=== PATIENT | male | born 1960 | race African-American/Black ===

== ENCOUNTER 2017-08-28 01:24 | Inpatient (IN) | payer OTHER ==
--- NOTE | 2017-08-28 01:25 | HP ---
COWS - Scale Resting Pulse: 0= [place] 80 or Below Sweatin= Chills/Flushing Restless Observation: 1= Difficult to Sit Still Pupil Size: 1= Pupils >than Normal Bone or Joint Aches: 2= Severe Diffuse Aches Runny Nose/ Eye Tearin= Runny Nose/Eyes GI Upset > 30mins: 1= Stomach Cramp Tremor Observation: 1= Tremor [place], Not Seen Yawning Observation: 1= 1-2x During Session Anxiety or Irritability: 1=Feels Anxious/Irritable Goose Flesh Skin: 3=Piloerection COWS Score: 14 Admission ROS S - [facility] Chief Complaint: WITHDRAWAL SYMPTOMS Allergies/Adverse Reactions: Allergies Allergy/AdvReac Type Severity Reaction Status Date / Time No Known Allergies Allergy Verified 08/28/17 01:26 History of Present Illness: 56 Y.O. MAN WITH A HISTORY OPIOID DEPENDENCE IS HERE SEEKING DETOX. HE REPORTS HE HAS A 14 HISTORY OF DRUG ABSTINENCE BUT STATES HE RELAPSED 2 YEARS AGO. Exam Limitations: Physical Impairment (LEFT-SIDED HEMIPARESIS) - Ebola screening Have you traveled outside of the country in the last 21 days: No Have you been sick,other than usual withdrawal symptoms: No - Review of Systems Constitutional: Chills, Loss of Appetite, Changes in sleep, Weakness EENT: reports: Tearing Respiratory: reports: No Symptoms reported Cardiac: reports: No Symptoms Reported GI: reports: Abdominal cramping : reports: No Symptoms Reported Musculoskeletal: reports: Back Pain, Muscle Weakness, Neck Pain Integumentary: reports: No Symptoms Reported Neuro: reports: Weakness, Unsteady Gait Endocrine: reports: No Symptoms Reported Hematology: reports: No Symptoms Reported Psychiatric: reports: No Sypmtoms Reported Other Systems: Reviewed and Negative Patient History - Patient Medical History Hx Anemia: No Hx Asthma: No Hx Chronic Obstructive Pulmonary Disease (COPD): No Hx Cancer: No Hx Cardiac Disorders: No Hx Congestive Heart Failure: No Hx Hypertension: No Hx Hypercholesterolemia: No Hx Pacemaker: No HX Cerebrovascular Accident: No Hx Seizures: No Hx Dementia: No Hx Diabetes: No Hx Gastrointestinal Disorders: No Hx Liver Disease: No Hx Genitourinary Disorders: No Hx Sexually Transmitted Disorders: No Hx Renal Disease (ESRD): No Hx Thyroid Disease: No Hx Human Immunodeficiency Virus (HIV): No Hx Hepatitis C: No Hx Depression: No Hx Suicide Attempt: No Hx Bipolar Disorder: No Hx Schizophrenia: No - Patient Surgical History Past Surgical History: No - PPD History Previous Implant?: Yes Documented Results: Negative w/o proof PPD to be Administered?: Yes - Reproductive History Patient is a Female of Child Bearing Age (11 -55 yrs old): No - Smoking Cessation Smoking history: Current every day smoker Have you smoked in the past 12 months: Yes Aproximately how many cigarettes per day: 7 Initiated information on smoking cessation: Yes 'Breaking Loose' booklet given: 08/28/17 - Substance & Tx. History Hx Alcohol Use: No Hx Substance Use: Yes Substance Use Type: Heroin Hx Substance Use Treatment: Yes (DETOX: 2 YEARS AGO BUT DOES NOT RECALL THE LOCATION ) - Substances Abused Heroin Route: Inhalation Frequency: Daily Amount used: 5 BAGS Age of first use: 17 Date of Last Use: 08/27/17 Family Disease History - Family Disease History Family Disease History: Diabetes: Mother Admission Physical Exam [facility] - Physical General Appearance: Yes: Thin HEENTM: Yes: Hearing grossly Normal, Normal ENT Inspection, Normal Voice Respiratory: Yes: Chest Non-Tender, Lungs Clear, Normal Breath Sounds Neck: Yes: No masses,lesions,Nodules, Trachea in good position Breast: Yes: Breast Exam Deferred Cardiology: Yes: Regular Rhythm, Regular Rate Abdominal: Yes: Normal Bowel Sounds, Non Tender, Flat, Soft Genitourinary: Yes: Other (NO COMPLAINTS REPORTED) Back: Yes: Decreased Range of Motion Musculoskeletal: Yes: Joint Stiffness, Muscle Pain, Muscle weakness Extremities: Yes: Normal Capillary Refill, Normal Inspection, Normal Range of Motion, Non-Tender Neurological: Yes: Alert, Normal Mood/Affect, Normal Response Integumentary: Yes: Normal Color, Dry, Warm Lymphatic: Yes: Within Normal Limits - Diagnostic (1) Opioid dependence with withdrawal Current Visit: Yes Status: Chronic (2) Poliomyelitis Current Visit: Yes Status: Chronic (3) Nicotine dependence Current Visit: Yes Status: Chronic (4) Unsteady gait Current Visit: Yes Status: Chronic (5) Hemiparesis of left nondominant side Current Visit: Yes Status: Chronic (6) Underweight Current Visit: Yes Status: Acute Cleared for Admission [facility] - Detox or Rehab [facility] Level of Care: Medically Managed Detox Regimen/Protocol: Methadone Vital Signs - Vital Signs Vital Signs Refused: No Temperature: 97.0 F Temperature Source: Oral Pulse Rate: 68 Respiratory Rate: 16 Blood Pressure: 111/72 BP Location: Right Arm Blood Pressure Position: Sitting - Height Height: 6 ft 3 in - Weight Weight: 145 lb Weight Measurement Method: Stated by Patient Body Mass Index (BMI): 18.1 Urine Drug Screen - Control Is Test Valid: Yes - Results Drug Screen Negative: No Urine Drug Screen Results: OPI-Opiates, MTD-Methadone
[2017-08-28] MEDS ORDERED: hydrOXYzine PAMOATE 50 MG CAPSULE (FP) PO PRN (01:26)
[2017-08-28] MEDS ORDERED: IBUPROFEN 400 MG TABLET (FP) PO PRN (01:26)
[2017-08-28] MEDS ORDERED: MENTHOL/PHENOL 1 EACH UD MM PRN (01:26)
[2017-08-28] MEDS ORDERED: MAGNESIUM CITRATE 300 ML BOTTLE PO PRN (01:26)
[2017-08-28] MEDS ORDERED: METHADONE HCL 10 MG TABLET (FOR DETOX USE ONLY) PO ONE ×3 (01:26→23:00)
[2017-08-28] MEDS ORDERED: LOPERAMIDE HCL 2 MG CAPSULE PO PRN (01:26)
[2017-08-28] MEDS ORDERED: ACETAMINOPHEN 325 MG TABLET (FP) PO PRN (01:26)
[2017-08-28] MEDS ORDERED: MAGNESIUM HYDROX 2400MG/30ML ORAL SUSPENSION 30 ML CUP PO PRN (01:26)
[2017-08-28] MEDS ORDERED: guaiFENesin/D-METHORPHAN HB 10 ML UNIT-DOSE CUPS PO PRN (01:26)
[2017-08-28] MEDS ORDERED: MAG HYDROX/AL HYDROX/SIMETH 30 ML UNIT-DOSE CUP PO PRN (01:26)
[2017-08-28] MEDS ORDERED: P-EPHED 60MG/TRIPROLIDI 2.5MG TABLET PO PRN (01:26)
[2017-08-28 01:37] VITALS: BMI 18.1
[2017-08-28] MEDS: diazePAM 5 MG TABLET PO PRN (02:47)
--- NOTE | 2017-08-28 09:38 | EKG ---
Test Reason : Blood Pressure : / mmHG Vent. Rate : 062 BPM Atrial Rate : 062 BPM P-R Int : 136 ms QRS Dur : 104 ms QT Int : 422 ms P-R-T Axes : 079 020 038 degrees QTc Int : 428 ms NORMAL SINUS RHYTHM MINIMAL VOLTAGE CRITERIA FOR LVH, MAY BE NORMAL VARIANT BORDERLINE ECG NO PREVIOUS ECGS AVAILABLE Confirmed by ARCHANA NUNN, MAU ([id number]) on 08/28/2017 9:38:21 AM Referred By: Confirmed By:MAU MAGAÑA MD
[2017-08-28 10:20] LABS: HEMATOCRIT 37.1 % (35.4-49); HEMOGLOBIN 12.1 GM/dL (11.7-16.9); MCH 29.1 pg (25.7-33.7); MCHC 32.7 g/dl (32.0-35.9); MEAN PLT VOLUME 8.2 fl (7.5-11.1); PLATELET COUNT 187 K/MM3 (134-434); RBC 4.17 M/mm3 (4.00-5.60); RDW 13.6 % (11.9-15.9); WHITE BLOOD COUNT 3.5 K/mm3 (4.0-10.0)
[2017-08-28 10:25] LABS: ALBUMIN 3.4 g/dl (3.4-5.0); ANION GAP 8 (8-16); BLOOD UREA NITROGEN 14 mg/dL (7-18); CALCIUM 8.2 mg/dL (8.5-10.1); CHLORIDE 102 mmol/L (98-107); CO2 29 mmol/L (21-32); CREATININE 0.6 mg/dL (0.7-1.3); GLUCOSE,RANDOM 85 mg/dL (74-106); SGOT/AST 14 U/L (15-37); SGPT/ALT 22 U/L (12-78); SODIUM 139 mmol/L (136-145)
[2017-08-28 10:27] LABS: ALK PHOS 76 U/L (45-117); BILIRUBIN,TOTAL 0.4 mg/dL (0.2-1.0); TOT PROT 6.6 g/dl (6.4-8.2)
[2017-08-28] MEDS: PRENATAL VITAMINS W/ FOLIC ACID TABLET (FP) PO SCH (10:28)
--- NOTE | 2017-08-28 15:17 | PN ---
[facility] Progress Note Note: PT WAS ADMITTED EARLIER THIS MORNING. ALERT O X 3. C/O FATIGUE. Vital Signs Temperature 96.2 F L 08/28/17 13:16 Pulse Rate 63 08/28/17 13:16 Respiratory Rate 18 08/28/17 13:16 Blood Pressure 112/66 08/28/17 13:16 O2 Sat by Pulse Oximetry (%) Laboratory Last Values WBC 3.5 K/mm3 (4.0-10.0) L 08/28/17 07:00 RBC 4.17 M/mm3 (4.00-5.60) 08/28/17 07:00 Hgb 12.1 GM/dL (11.7-16.9) 08/28/17 07:00 Hct 37.1 % (35.4-49) 08/28/17 07:00 MCV 89.0 fl (80-96) 08/28/17 07:00 MCH 29.1 pg (25.7-33.7) 08/28/17 07:00 MCHC 32.7 g/dl (32.0-35.9) 08/28/17 07:00 RDW 13.6 % (11.9-15.9) 08/28/17 07:00 Plt Count 187 K/MM3 (134-434) 08/28/17 07:00 MPV 8.2 fl (7.5-11.1) 08/28/17 07:00 Sodium 139 mmol/L (136-145) 08/28/17 07:00 Potassium 4.0 mmol/L (3.5-5.1) 08/28/17 07:00 Chloride 102 mmol/L (98-107) 08/28/17 07:00 Carbon Dioxide 29 mmol/L (21-32) 08/28/17 07:00 Anion Gap 8 (8-16) 08/28/17 07:00 BUN 14 mg/dL (7-18) 08/28/17 07:00 Creatinine 0.6 mg/dL (0.7-1.3) L 08/28/17 07:00 Creat Clearance w eGFR > 60 (>60) 08/28/17 07:00 Random Glucose 85 mg/dL (74-106) 08/28/17 07:00 Calcium 8.2 mg/dL (8.5-10.1) L 08/28/17 07:00 Total Bilirubin 0.4 mg/dL (0.2-1.0) 08/28/17 07:00 AST 14 U/L (15-37) L 08/28/17 07:00 ALT 22 U/L (12-78) 08/28/17 07:00 Alkaline Phosphatase 76 U/L (45-117) 08/28/17 07:00 Total Protein 6.6 g/dl (6.4-8.2) 08/28/17 07:00 Albumin 3.4 g/dl (3.4-5.0) 08/28/17 07:00 RPR Titer Nonreactive (NONREACTIVE) 08/28/17 07:00 CONTINUE DETOX
[2017-08-28] MEDS: THIAMINE HCL 100 MG TABLET (FP) PO SCH (22:46)
[2017-08-29] MEDS: diazePAM 5 MG TABLET PO PRN ×4 (06:29→22:28)
[2017-08-29] MEDS ORDERED: METHADONE HCL 10 MG TABLET (FOR DETOX USE ONLY) PO ONE (10:00)
[2017-08-29] MEDS: PRENATAL VITAMINS W/ FOLIC ACID TABLET (FP) PO SCH (10:15)
--- NOTE | 2017-08-29 11:40 | PN ---
S CIWA - CIWA Score Anxiety: 3 Paroxysmal Sweats: 3 BHS COWS - Scale Resting Pulse: 0= [place] 80 or Below Sweatin=Flushed/Facial Moisture Restless Observation: 0= Sits Still Pupil Size: 0= Normal to Room Light Bone or Joint Aches: 1= Mild Discomfort Runny Nose/ Eye Tearin= Nasal Congestion GI Upset > 30mins: 0= None Tremor Observation of Outstretched Hands: 2= Slight Tremor Visible Yawning Observation: 2= >3x During Session Anxiety or Irritability: 1=Feels Anxious/Irritable Goose Flesh Skin: 3=Piloerection COWS Score: 12 BHS Progress Note (SOAP) Subjective: Interrupted sleep, shakes, body aches, sweats, chills Objective: 08/29/17 11:40 Vital Signs Temperature 96.0 F L 08/29/17 09:31 Pulse Rate 56 L 08/29/17 09:31 Respiratory Rate 18 08/29/17 09:31 Blood Pressure 103/73 08/29/17 09:31 O2 Sat by Pulse Oximetry (%) Laboratory Last Values WBC 3.5 K/mm3 (4.0-10.0) L 08/28/17 07:00 RBC 4.17 M/mm3 (4.00-5.60) 08/28/17 07:00 Hgb 12.1 GM/dL (11.7-16.9) 08/28/17 07:00 Hct 37.1 % (35.4-49) 08/28/17 07:00 MCV 89.0 fl (80-96) 08/28/17 07:00 MCH 29.1 pg (25.7-33.7) 08/28/17 07:00 MCHC 32.7 g/dl (32.0-35.9) 08/28/17 07:00 RDW 13.6 % (11.9-15.9) 08/28/17 07:00 Plt Count 187 K/MM3 (134-434) 08/28/17 07:00 MPV 8.2 fl (7.5-11.1) 08/28/17 07:00 Sodium 139 mmol/L (136-145) 08/28/17 07:00 Potassium 4.0 mmol/L (3.5-5.1) 08/28/17 07:00 Chloride 102 mmol/L (98-107) 08/28/17 07:00 Carbon Dioxide 29 mmol/L (21-32) 08/28/17 07:00 Anion Gap 8 (8-16) 08/28/17 07:00 BUN 14 mg/dL (7-18) 08/28/17 07:00 Creatinine 0.6 mg/dL (0.7-1.3) L 08/28/17 07:00 Creat Clearance w eGFR > 60 (>60) 08/28/17 07:00 Random Glucose 85 mg/dL (74-106) 08/28/17 07:00 Calcium 8.2 mg/dL (8.5-10.1) L 08/28/17 07:00 Total Bilirubin 0.4 mg/dL (0.2-1.0) 08/28/17 07:00 AST 14 U/L (15-37) L 08/28/17 07:00 ALT 22 U/L (12-78) 08/28/17 07:00 Alkaline Phosphatase 76 U/L (45-117) 08/28/17 07:00 Total Protein 6.6 g/dl (6.4-8.2) 08/28/17 07:00 Albumin 3.4 g/dl (3.4-5.0) 08/28/17 07:00 RPR Titer Nonreactive (NONREACTIVE) 08/28/17 07:00 Labs noted Assessment: 08/29/17 11:41 withdrawal symptoms Plan: Continue Detox Increase fluids for hydration Continue to monitor
[2017-08-29] MEDS: THIAMINE HCL 100 MG TABLET (FP) PO SCH (22:28)
[2017-08-29 23:33] LABS: URINE APPEARANCE CLEAR; URINE BILIRUBIN NEGATIVE (NEGATIVE); URINE BLOOD NEGATIVE (NEGATIVE); URINE GLUCOSE (UA) NEGATIVE (NEGATIVE); URINE KETONE NEGATIVE (NEGATIVE); URINE LEUK ESTERASE NEGATIVE (NEGATIVE); URINE NITRITE NEGATIVE (NEGATIVE); URINE PROTEIN NEGATIVE (NEGATIVE); URINE UROBILINOGEN NEGATIVE mg/dL (0.2-1.0)
[2017-08-29 23:57] LABS: URINE COLOR YELLOW
[2017-08-30] MEDS: diazePAM 5 MG TABLET PO PRN ×3 (05:50→20:51)
[2017-08-30] MEDS ORDERED: METHADONE HCL 5 MG TABLET (FOR DETOX USE ONLY) PO ONE (10:00)
[2017-08-30] MEDS: PRENATAL VITAMINS W/ FOLIC ACID TABLET (FP) PO SCH (10:07)
--- NOTE | 2017-08-30 12:04 | PN ---
BHS COWS - Scale Resting Pulse: 0= [place] 80 or Below Sweatin= Chills/Flushing Restless Observation: 3= Extraneous Movement Pupil Size: 0= Normal to Room Light Bone or Joint Aches: 2= Severe Diffuse Aches Runny Nose/ Eye Tearin= Runny Nose/Eyes GI Upset > 30mins: 1= Stomach Cramp Tremor Observation of Outstretched Hands: 2= Slight Tremor Visible Yawning Observation: 1= 1-2x During Session Anxiety or Irritability: 2=Irritable/Anxious Goose Flesh Skin: 0=Smooth Skin COWS Score: 14 BHS Progress Note (SOAP) Subjective: Tremor, chills, headache, interrupted sleep Objective: 08/30/17 12:03 Last Vital Signs Temp Pulse Resp BP Pulse Ox 97.2 F L 66 18 107/75 08/30/17 10:16 08/30/17 10:16 08/30/17 10:16 08/30/17 10:16 Laboratory Tests 08/28/17 08/28/17 08/28/17 07:00 07:00 07:00 WBC 3.5 L RBC 4.17 Hgb 12.1 Hct 37.1 MCV 89.0 MCH 29.1 MCHC 32.7 RDW 13.6 Plt Count 187 MPV 8.2 Sodium 139 Potassium 4.0 Chloride 102 Carbon Dioxide 29 Anion Gap 8 BUN 14 Creatinine 0.6 L Creat Clearance w eGFR > 60 Random Glucose 85 Calcium 8.2 L Total Bilirubin 0.4 AST 14 L ALT 22 Alkaline Phosphatase 76 Total Protein 6.6 Albumin 3.4 Urine Color Urine Appearance Urine pH Ur Specific [place] Urine Protein Urine Glucose (UA) Urine Ketones Urine Blood Urine Nitrite Urine Bilirubin Urine Urobilinogen Ur Leukocyte Esterase RPR Titer Nonreactive 08/29/17 21:00 WBC RBC Hgb Hct MCV MCH MCHC RDW Plt Count MPV Sodium Potassium Chloride Carbon Dioxide Anion Gap BUN Creatinine Creat Clearance w eGFR Random Glucose Calcium Total Bilirubin AST ALT Alkaline Phosphatase Total Protein Albumin Urine Color Yellow Urine Appearance Clear Urine pH 6.0 Ur Specific [place] 1.002 Urine Protein Negative Urine Glucose (UA) Negative Urine Ketones Negative Urine Blood Negative Urine Nitrite Negative Urine Bilirubin Negative Urine Urobilinogen Negative Ur Leukocyte Esterase Negative RPR Titer Labs noted Assessment: 08/30/17 12:04 Withdrawal symptoms Plan: Continue detox Encouraged to drink lots of water for hydration
[2017-08-30] MEDS: THIAMINE HCL 100 MG TABLET (FP) PO SCH (22:30)
[2017-08-31] MEDS ORDERED: METHADONE HCL 5 MG TABLET (FOR DETOX USE ONLY) PO ONE (10:00)
[2017-08-31] MEDS: PRENATAL VITAMINS W/ FOLIC ACID TABLET (FP) PO SCH (10:09)
--- NOTE | 2017-08-31 13:00 | PN ---
BHS Progress Note (SOAP) Subjective: Generalized body aches and interrupted sleep Objective: 08/31/17 12:59 Vital Signs - 8 hr 08/31/17 08/31/17 06:44 09:23 Temperature 97.3 F L 97.9 F Pulse Rate 59 L 64 Respiratory 18 18 Rate Blood Pressure 106/73 107/71 Laboratory Last Values WBC 3.5 K/mm3 (4.0-10.0) L 08/28/17 07:00 RBC 4.17 M/mm3 (4.00-5.60) 08/28/17 07:00 Hgb 12.1 GM/dL (11.7-16.9) 08/28/17 07:00 Hct 37.1 % (35.4-49) 08/28/17 07:00 MCV 89.0 fl (80-96) 08/28/17 07:00 MCH 29.1 pg (25.7-33.7) 08/28/17 07:00 MCHC 32.7 g/dl (32.0-35.9) 08/28/17 07:00 RDW 13.6 % (11.9-15.9) 08/28/17 07:00 Plt Count 187 K/MM3 (134-434) 08/28/17 07:00 MPV 8.2 fl (7.5-11.1) 08/28/17 07:00 Sodium 139 mmol/L (136-145) 08/28/17 07:00 Potassium 4.0 mmol/L (3.5-5.1) 08/28/17 07:00 Chloride 102 mmol/L (98-107) 08/28/17 07:00 Carbon Dioxide 29 mmol/L (21-32) 08/28/17 07:00 Anion Gap 8 (8-16) 08/28/17 07:00 BUN 14 mg/dL (7-18) 08/28/17 07:00 Creatinine 0.6 mg/dL (0.7-1.3) L 08/28/17 07:00 Creat Clearance w eGFR > 60 (>60) 08/28/17 07:00 Random Glucose 85 mg/dL (74-106) 08/28/17 07:00 Calcium 8.2 mg/dL (8.5-10.1) L 08/28/17 07:00 Total Bilirubin 0.4 mg/dL (0.2-1.0) 08/28/17 07:00 AST 14 U/L (15-37) L 08/28/17 07:00 ALT 22 U/L (12-78) 08/28/17 07:00 Alkaline Phosphatase 76 U/L (45-117) 08/28/17 07:00 Total Protein 6.6 g/dl (6.4-8.2) 08/28/17 07:00 Albumin 3.4 g/dl (3.4-5.0) 08/28/17 07:00 Urine Color Yellow 08/29/17 21:00 Urine Appearance Clear 08/29/17 21:00 Urine pH 6.0 (5.0-8.0) 08/29/17 21:00 Ur Specific [place] 1.002 (1.001-1.035) 08/29/17 21:00 Urine Protein Negative (NEGATIVE) 08/29/17 21:00 Urine Glucose (UA) Negative (NEGATIVE) 08/29/17 21:00 Urine Ketones Negative (NEGATIVE) 08/29/17 21:00 Urine Blood Negative (NEGATIVE) 08/29/17 21:00 Urine Nitrite Negative (NEGATIVE) 08/29/17 21:00 Urine Bilirubin Negative (NEGATIVE) 08/29/17 21:00 Urine Urobilinogen Negative mg/dL (0.2-1.0) 08/29/17 21:00 Ur Leukocyte Esterase Negative (NEGATIVE) 08/29/17 21:00 RPR Titer Nonreactive (NONREACTIVE) 08/28/17 07:00 Labs noted Assessment: 08/31/17 13:00 Withdrawal sx Plan: Continue detox
[2017-08-31] MEDS: THIAMINE HCL 100 MG TABLET (FP) PO SCH (22:15)
[2017-09-01] MEDS ORDERED: METHADONE HCL 10 MG TABLET (FOR DETOX USE ONLY) PO ONE (10:00)
[2017-09-01] MEDS: PRENATAL VITAMINS W/ FOLIC ACID TABLET (FP) PO SCH (10:22)
--- NOTE | 2017-09-01 14:40 | PN ---
BHS Progress Note (SOAP) Subjective: Tremors, Body Aches. Objective: PT. A & O X 3, OBSERVED AMBULATING ON UNIT. NO ACUTE DISTRESS. 09/01/17 14:39 Vital Signs Temperature 95.9 F L 09/01/17 09:56 Pulse Rate 57 L 09/01/17 09:56 Respiratory Rate 18 09/01/17 09:56 Blood Pressure 111/73 09/01/17 09:56 O2 Sat by Pulse Oximetry (%) Laboratory Tests 08/28/17 08/28/17 08/28/17 07:00 07:00 07:00 WBC 3.5 L RBC 4.17 Hgb 12.1 Hct 37.1 MCV 89.0 MCH 29.1 MCHC 32.7 RDW 13.6 Plt Count 187 MPV 8.2 Sodium 139 Potassium 4.0 Chloride 102 Carbon Dioxide 29 Anion Gap 8 BUN 14 Creatinine 0.6 L Creat Clearance w eGFR > 60 Random Glucose 85 Calcium 8.2 L Total Bilirubin 0.4 AST 14 L ALT 22 Alkaline Phosphatase 76 Total Protein 6.6 Albumin 3.4 Urine Color Urine Appearance Urine pH Ur Specific [place] Urine Protein Urine Glucose (UA) Urine Ketones Urine Blood Urine Nitrite Urine Bilirubin Urine Urobilinogen Ur Leukocyte Esterase RPR Titer Nonreactive 08/29/17 21:00 WBC RBC Hgb Hct MCV MCH MCHC RDW Plt Count MPV Sodium Potassium Chloride Carbon Dioxide Anion Gap BUN Creatinine Creat Clearance w eGFR Random Glucose Calcium Total Bilirubin AST ALT Alkaline Phosphatase Total Protein Albumin Urine Color Yellow Urine Appearance Clear Urine pH 6.0 Ur Specific [place] 1.002 Urine Protein Negative Urine Glucose (UA) Negative Urine Ketones Negative Urine Blood Negative Urine Nitrite Negative Urine Bilirubin Negative Urine Urobilinogen Negative Ur Leukocyte Esterase Negative RPR Titer LABS NOTED. Assessment: 09/01/17 14:39 WITHDRAWAL SYMPTOMS. Plan: CONTINUE DETOX.
[2017-09-01] MEDS: THIAMINE HCL 100 MG TABLET (FP) PO SCH (22:13)
[2017-09-02] MEDS ORDERED: METHADONE HCL 5 MG TABLET (FOR DETOX USE ONLY) PO ONE (06:00)
[2017-09-02 06:37] VITALS: BP 108/69; PULSE 58; TEMP 96.7
[2017-09-02] MEDS: PRENATAL VITAMINS W/ FOLIC ACID TABLET (FP) PO SCH (09:25)
== END 2017-09-02 09:31 | disposition home or self-care (01) | DRG 773 ==
LOC: YASAS 01:24 → Y3N 01:26
PROVIDERS: ADMIT Internal Medicine; ATTEND Internal Medicine
PROC: HZ2ZZZZ Detoxification Services for Substance Abuse Treatment (ICD-10-PCS; principal; 2017-08-28)
DX: F11.23 Opioid dependence with withdrawal (principal); F17.210 Nicotine dependence, cigarettes, uncomplicated; G81.94 Hemiplegia, unspecified affecting left nondominant side; A80.9 Acute poliomyelitis, unspecified; R26.81 Unsteadiness on feet; R63.6 Underweight; Z68.1 Body mass index [BMI] 19.9 or less, adult
CPT/HCPCS: 36415; 80053; 81003; 85027; 86593; 93005; 93010

== ENCOUNTER 2018-01-10 13:17 | Inpatient (IN) | payer OTHER ==
[2018-01-10 16:39] VITALS: BMI 20.5
--- NOTE | 2018-01-10 20:42 | HP ---
COWS - Scale Resting Pulse: 0= [place] 80 or Below Sweatin=Flushed/Facial Moisture Restless Observation: 1= Difficult to Sit Still Pupil Size: 2= Moderately Dilated Bone or Joint Aches: 1= Mild Discomfort Runny Nose/ Eye Tearin= Nasal Congestion GI Upset > 30mins: 0= None Tremor Observation: 2= Slight Tremor Visible Yawning Observation: 0= None Anxiety or Irritability: 2=Irritable/Anxious Goose Flesh Skin: 0=Smooth Skin COWS Score: 11 Admission [facility] Chief Complaint: Hx. heroin use and here for detox.Having withdrawal symptoms. Allergies/Adverse Reactions: Allergies Allergy/AdvReac Type Severity Reaction Status Date / Time Penicillins Allergy Hives Verified 01/10/18 17:29 History of Present Illness: Started using heroin at age 14 to 16. Remained opiate free from age 16 to age 56 when relapsed. Last use 01/09 @ 11 pm. Here to stop opiate use. Denies other illicit substances or alcohol. Hx. HIV (+) and on meds. Hx. seizures and on medications. Hx. Polio and wears a leg brace and (L) wrist splint. Exam Limitations: No Limitations - Ebola screening Have you traveled outside of the country in the last 21 days: No Have you had contact with anyone from an Ebola affected area: No Have you been sick,other than usual withdrawal symptoms: No Do you have a fever: No - Review of Systems Constitutional: Changes in sleep (Difficulty falling asleep r/t depression.), Unintentional Wgt. Loss (Lost about 15 lbs in past 6 months.) EENT: reports: Blurred Vision (Wears glasses.) Respiratory: reports: No Symptoms reported Cardiac: reports: No Symptoms Reported GI: reports: Poor Appetite (decreased r/t w/drawal.) : reports: No Symptoms Reported Musculoskeletal: reports: Muscle Weakness ((L) sided muscle weakness r/t polio.) Integumentary: reports: No Symptoms Reported Neuro: reports: Numbness (Numbness (L) hand and fingers.), Seizure (Hx seizures on meds. States last seizre was 4 days ago.), Weakness (r/t Polio.), Other ( Spasms of (L) leg on occassion.) Endocrine: reports: No Symptoms Reported Hematology: reports: Other (Hx. HIV. Diagnosed in 1978. Started medications about 2 years ago.) Psychiatric: reports: Orientated x3, Depressed (Occassional. In a period of grief for loss of family members. Denies suicide or violent ideation.) Patient History - Patient Medical History Hx Anemia: No Hx Asthma: No Hx Chronic Obstructive Pulmonary Disease (COPD): No Hx Cancer: No Hx Cardiac Disorders: No Hx Congestive Heart Failure: No Hx Hypertension: No Hx Hypercholesterolemia: No Hx Pacemaker: No HX Cerebrovascular Accident: No Hx Seizures: Yes (Last two weeks ago) Hx Dementia: No Hx Diabetes: No Hx Gastrointestinal Disorders: No Hx Liver Disease: No Hx Genitourinary Disorders: No Hx Sexually Transmitted Disorders: No Hx Renal Disease (ESRD): No Hx Thyroid Disease: No Hx Human Immunodeficiency Virus (HIV): No Hx Hepatitis C: No Hx Depression: Yes (Denies suicide/violent ideation. ) Hx Suicide Attempt: No Hx Bipolar Disorder: No Hx Schizophrenia: No - Patient Surgical History Past Surgical History: No Hx Neurologic Surgery: No Hx Cataract Extraction: No Hx Cardiac Surgery: No Hx Lung Surgery: No Hx Breast Surgery: No Hx Breast Biopsy: No Hx Abdominal Surgery: No Hx Appendectomy: No Hx Cholecystectomy: No Hx Genitourinary Surgery: No Hx Section: No Hx Orthopedic Surgery: No Anesthesia Reaction: No - PPD History Previous Implant?: No Documented Results: Negative w/proof Implanted On Prior [facility] Admission?: Yes Date: 08/30/17 Results: 0MM PPD to be Administered?: No - Reproductive History Patient is a Female of Child Bearing Age (11 -55 yrs old): No - Smoking Cessation Smoking history: Current every day smoker Have you smoked in the past 12 months: Yes Aproximately how many cigarettes per day: 3 Hx Chewing Tobacco Use: No Initiated information on smoking cessation: Yes 'Breaking Loose' booklet given: 01/10/18 - Substance & Tx. History Hx Alcohol Use: No Hx Substance Use: Yes Substance Use Type: Heroin Hx Substance Use Treatment: Yes (1 prior detox attempt) - Substances Abused Heroin Route: Inhalation Frequency: Daily Amount used: 5 BAGS Age of first use: 56 Date of Last Use: 01/09/18 Family Disease History - Family Disease History Family Disease History: Diabetes: Mother Admission Physical Exam BHS - Vital Signs Vital Signs: Vital Signs - 24 hr 01/10/18 16:35 Temperature 96.4 F L Pulse Rate 53 L Respiratory 20 Rate Blood Pressure 139/75 - Physical General Appearance: Yes: Mild Distress, Tremorous, Irritable HEENTM: Yes: EOMI, Hearing grossly Normal, Normocephalic, Normal Voice, MIRANDA Respiratory: Yes: Lungs Clear, Normal Breath Sounds, No Respiratory Distress Neck: Yes: No masses,lesions,Nodules, Supple Breast: Yes: Breast Exam Deferred Cardiology: Yes: Regular Rhythm, S1, S2, Bradycardia (Denies chest pain, dizziness, SOB.) Abdominal: Yes: Normal Bowel Sounds, Non Tender, Flat, Soft Genitourinary: Yes: Within Normal Limits Back: Yes: Normal Inspection Musculoskeletal: Yes: Muscle weakness ((L) side.), Other (Decreased ROM (L) arm. ) Extremities: Yes: Normal Capillary Refill, Non-Tender, Tremors Neurological: Yes: Fully Oriented, Alert, Numbness (Numbness (L) hand and fingers.), Other (Generalized weakness (L) arm and leg. Decreased muscle tone w / wasting (L) arm and paresis fingers (L) hand. FWB (L) leg w/o a brace.) Integumentary: Yes: Dry (Dry mucous membranes), Warm Lymphatic: Yes: Within Normal Limits - Diagnostic (1) HIV (human immunodeficiency virus infection) Current Visit: Yes Status: Chronic (2) Opioid dependence with withdrawal Current Visit: Yes Status: Acute (3) Underweight Current Visit: Yes Status: Chronic (4) Hemiparesis of left nondominant side Current Visit: Yes Status: Chronic Qualifiers: Hemiparesis etiology: non-cerebrovascular etiology Qualified Code(s): G81.94 - Hemiplegia, unspecified affecting left nondominant side (5) Nicotine dependence Current Visit: Yes Status: Acute Qualifiers: Nicotine product type: cigarettes Substance use status: uncomplicated Qualified Code(s): F17.210 - Nicotine dependence, cigarettes, uncomplicated (6) Poliomyelitis Current Visit: Yes Status: Chronic (7) Unsteady gait Current Visit: Yes Status: Chronic (8) Dry skin Current Visit: Yes Status: Chronic (9) Dehydration Current Visit: Yes Status: Acute Cleared for Admission S - Detox or Rehab [facility] Level of Care: Medically Managed Detox Regimen/Protocol: Methadone [facility] Breath Alcohol Content Breath Alcohol Content: 0 Urine Drug Screen - Results Drug Screen Negative: No Urine Drug Screen Results: OPI-Opiates
[2018-01-10] MEDS ORDERED: MENTHOL/PHENOL 1 EACH UD MM PRN (21:09)
[2018-01-10] MEDS ORDERED: LOPERAMIDE HCL 2 MG CAPSULE PO PRN (21:09)
[2018-01-10] MEDS ORDERED: METHADONE HCL 10 MG TABLET (FOR DETOX USE ONLY) PO ONE ×3 (21:09→23:45)
[2018-01-10] MEDS ORDERED: hydrOXYzine PAMOATE 50 MG CAPSULE (FP) PO PRN (21:09)
[2018-01-10] MEDS ORDERED: MAGNESIUM HYDROX 2400MG/30ML ORAL SUSPENSION 30 ML CUP PO PRN (21:09)
[2018-01-10] MEDS ORDERED: MAG HYDROX/AL HYDROX/SIMETH 30 ML UNIT-DOSE CUP PO PRN (21:09)
[2018-01-10] MEDS ORDERED: NICOTINE POLACRILEX 2 MG GUM BC PRN (21:09)
[2018-01-10] MEDS ORDERED: ACETAMINOPHEN 325 MG TABLET (FP) PO PRN (21:09)
[2018-01-10] MEDS ORDERED: IBUPROFEN 400 MG TABLET (FP) PO PRN (21:09)
[2018-01-10] MEDS ORDERED: guaiFENesin/D-METHORPHAN HB 10 ML UNIT-DOSE CUPS PO PRN (21:09)
[2018-01-10] MEDS ORDERED: MAGNESIUM CITRATE 300 ML BOTTLE PO PRN (21:09)
[2018-01-10] MEDS ORDERED: P-EPHED 60MG/TRIPROLIDI 2.5MG TABLET PO PRN (21:09)
[2018-01-10] MEDS ORDERED: AMMONIUM LACTATE 12% LOTION 225 GM BOTTLE TP PRN (21:17)
[2018-01-10] MEDS: THIAMINE HCL 100 MG TABLET (FP) PO SCH (23:40)
[2018-01-10] MEDS: diazePAM 5 MG TABLET PO PRN (23:40)
[2018-01-10] MEDS: levETIRAcetam 500 MG TABLET (FP) PO SCH (23:41)
[2018-01-11 01:41] LABS: URINE APPEARANCE CLEAR; URINE BILIRUBIN NEGATIVE (<2.0 mg/dL); URINE COLOR YELLOW; URINE GLUCOSE (UA) NEGATIVE (NEGATIVE); URINE KETONE NEGATIVE (NEGATIVE); URINE LEUK ESTERASE NEGATIVE (NEGATIVE); URINE NITRITE NEGATIVE (NEGATIVE); URINE PROTEIN NEGATIVE (NEGATIVE)
--- NOTE | 2018-01-11 08:47 | EKG ---
Test Reason : Blood Pressure : / mmHG Vent. Rate : 056 BPM Atrial Rate : 056 BPM P-R Int : 152 ms QRS Dur : 102 ms QT Int : 438 ms P-R-T Axes : 067 010 033 degrees QTc Int : 422 ms SINUS BRADYCARDIA MINIMAL VOLTAGE CRITERIA FOR LVH, MAY BE NORMAL VARIANT BORDERLINE ECG WHEN COMPARED WITH ECG OF 28-AUG-2017 03:45, NO SIGNIFICANT CHANGE WAS FOUND Confirmed by ARCHANA NUNN, MAU ([id number]) on 01/11/2018 8:46:55 AM Referred By: Confirmed By:MAU MAGAÑA MD
[2018-01-11] MEDS ORDERED: METHADONE HCL 10 MG TABLET (FOR DETOX USE ONLY) PO ONE (10:00)
[2018-01-11 10:14] LABS: HEMATOCRIT 37.2 % (35.4-49); HEMOGLOBIN 12.3 GM/dL (11.7-16.9); MCH 27.8 pg (25.7-33.7); MCHC 33.2 g/dl (32.0-35.9); MEAN CELL VOLUME 83.6 fl (80-96); MEAN PLT VOLUME 7.8 fl (7.5-11.1); PLATELET COUNT 203 K/MM3 (134-434); RBC 4.45 M/mm3 (4.00-5.60); RDW 14.4 % (11.9-15.9); WHITE BLOOD COUNT 3.6 K/mm3 (4.0-10.0)
[2018-01-11] MEDS: SULFAMETHOXAZOLE/TRIMETHOPRIM 800MG/160MG D.S. TABLET PO SCH (10:20)
[2018-01-11] MEDS: levETIRAcetam 500 MG TABLET (FP) PO SCH ×2 (10:20→22:31)
[2018-01-11] MEDS: PRENATAL VITAMINS W/ FOLIC ACID TABLET (FP) PO SCH (10:20)
[2018-01-11] MEDS: diazePAM 5 MG TABLET PO PRN (10:20)
--- NOTE | 2018-01-11 10:53 | PN ---
BHS COWS - Scale Resting Pulse: 0= SC 80 or Below Sweatin= Chills/Flushing Restless Observation: 3= Extraneous Movement Pupil Size: 1= Pupils >than Normal Bone or Joint Aches: 2= Severe Diffuse Aches Runny Nose/ Eye Tearin= Runny Nose/Eyes GI Upset > 30mins: 2= Nausea/Diarrhea Tremor Observation of Outstretched Hands: 2= Slight Tremor Visible Yawning Observation: 1= 1-2x During Session Anxiety or Irritability: 2=Irritable/Anxious Goose Flesh Skin: 0=Smooth Skin COWS Score: 16 S Progress Note (SOAP) Subjective: ALERT,IRRITABLE,ANXIOUS,INTERRUPTED SLEEP,TREMOR,PAIN IN THE BODY Objective: 01/11/18 10:50 Vital Signs Temperature 98.4 F 01/11/18 09:17 Pulse Rate 60 01/11/18 09:17 Respiratory Rate 16 01/11/18 09:17 Blood Pressure 111/74 01/11/18 09:17 O2 Sat by Pulse Oximetry (%) EKG SINUS BRADYCARDIA,LVH QT 436/422 Laboratory Last Values WBC 3.6 K/mm3 (4.0-10.0) L 01/11/18 07:50 RBC 4.45 M/mm3 (4.00-5.60) 01/11/18 07:50 Hgb 12.3 GM/dL (11.7-16.9) 01/11/18 07:50 Hct 37.2 % (35.4-49) 01/11/18 07:50 MCV 83.6 fl (80-96) 01/11/18 07:50 MCH 27.8 pg (25.7-33.7) 01/11/18 07:50 MCHC 33.2 g/dl (32.0-35.9) 01/11/18 07:50 RDW 14.4 % (11.9-15.9) 01/11/18 07:50 Plt Count 203 K/MM3 (134-434) 01/11/18 07:50 MPV 7.8 fl (7.5-11.1) 01/11/18 07:50 Urine Color Yellow 01/10/18 23:49 Urine Appearance Clear 01/10/18 23:49 Urine pH 6.0 (5.0-8.0) 01/10/18 23:49 Ur Specific [place] 1.023 (1.001-1.035) 01/10/18 23:49 Urine Protein Negative (NEGATIVE) 01/10/18 23:49 Urine Glucose (UA) Negative (NEGATIVE) 01/10/18 23:49 Urine Ketones Negative (NEGATIVE) 01/10/18 23:49 Urine Blood Negative (NEGATIVE) 01/10/18 23:49 Urine Nitrite Negative (NEGATIVE) 01/10/18 23:49 Urine Bilirubin Negative (<2.0 mg/dL) 01/10/18 23:49 Urine Urobilinogen 2.0 mg/dL (0.2-1.0) 01/10/18 23:49 Ur Leukocyte Esterase Negative (NEGATIVE) 01/10/18 23:49 LABS PENDING Assessment: 01/11/18 10:53 WITHDRAWAL SYMPTOM Plan: CONTINUE DETOX
[2018-01-11 10:56] LABS: CHLORIDE 104 mmol/L (98-107); POTASSIUM 4.1 mmol/L (3.5-5.1); SODIUM 139 mmol/L (136-145)
[2018-01-11 11:13] LABS: ALBUMIN 3.6 g/dl (3.4-5.0); ALK PHOS 65 U/L (45-117); ANION GAP 6 (8-16); BILIRUBIN,TOTAL 0.5 mg/dL (0.2-1.0); BLOOD UREA NITROGEN 11 mg/dL (7-18); CALCIUM 8.4 mg/dL (8.5-10.1); CO2 29 mmol/L (21-32); CREATININE 0.7 mg/dL (0.7-1.3); GLUCOSE,RANDOM 69 mg/dL (74-106); SGOT/AST 15 U/L (15-37); SGPT/ALT 19 U/L (12-78); TOT PROT 6.9 g/dl (6.4-8.2)
[2018-01-11] MEDS: COBICISTAT PO SCH (11:52)
[2018-01-11] MEDS: TENOFOVIR ALAFENAMIDE PO SCH (11:52)
[2018-01-11] MEDS: ELVITEGRAVIR PO SCH (11:52)
[2018-01-11] MEDS: EMTRICITABINE PO SCH (11:52)
--- NOTE | 2018-01-11 15:33 | CONSULT ---
[facility] Psychiatric Consult - Data Date of interview: 01/11/18 Admission source: [facility] Identifying data: Readmission to [facility] for this 57 y/o AA male seeking detox treatment on for heroin dependence.Patient is ,a father of one,domiciled,unemployed and currently supported on SSI benefits. Substance Abuse History: Discussed with the patient.Mr Horton confirms tears of heroin abuse via snorting.Smoking history: Current every day smoker. Have you smoked in the past 12 months: Yes. Aproximately how many cigarettes per day: 3. Hx Chewing Tobacco Use: No. Initiated information on smoking cessation: Yes. 'Breaking Loose' booklet given: 01/10/18. - Substance & Tx. History. Hx Alcohol Use: No. Hx Substance Use: Yes. Substance Use Type: Heroin. Hx Substance Use Treatment: Yes (1 prior detox attempt). - Substances Abused. Heroin. Route: Inhalation. Frequency: Daily. Amount used: 5 BAGS. Age of first use: 56. Date of Last Use: 01/09/18 Medical History: HIV infection since 1978 (on HAART medications),left-sided weakness (complication of polio),seizure disorder (on levetiracetam),weight loss and history of poliomyelitis (left wrist in splint). Psychiatric History: Patient denies. Physical/Sexual Abuse/Trauma History: Patient denies history of abuse.Traumatized by 15 cumulative years of incarceration and a history of multiple deaths in the family (patient, serving time, was not able to attend several funerals).Experiences dysphoria and guilt at times.Coping well. Additional Comment: Urine Drug Screen Results: OPI-Opiates.Noted. Mental Status Exam - Mental Status Exam Alert and Oriented to: Time, Place, Person Cognitive Function: Good Patient Appearance: Well Groomed (tall staure,thin habitus,atrophy of left arm and hand) Mood: Withdrawn, Hopeful Affect: Appropriate, Normal Range Patient Behavior: Fatigued, Appropriate, Cooperative Speech Pattern: Clear, Appropriate Voice Loudness: Normal Thought Process: Intact, Goal Oriented Thought Disorder: Not Present Hallucinations: Denies Suicidal Ideation: Denies Homicidal Ideation: Denies Insight/Judgement: Fair Sleep: Fair Appetite: Fair, Weight loss Gait/Station: Normal Psychiatric Findings - Problem List ([facility] 1, 2,3) (1) Opioid dependence with withdrawal Current Visit: Yes Status: Acute (2) Nicotine dependence Current Visit: Yes Status: Acute Qualifiers: Nicotine product type: cigarettes Substance use status: uncomplicated Qualified Code(s): F17.210 - Nicotine dependence, cigarettes, uncomplicated - Initial Treatment Plan Initial Treatment Plan: Psychoeducation and support.Sleep hygiene.Detoxification in progress.Observation.
[2018-01-11] MEDS: THIAMINE HCL 100 MG TABLET (FP) PO SCH (22:31)
[2018-01-11] MEDS: MELATONIN 5 MG TABLETS PO PRN (22:31)
[2018-01-12] MEDS ORDERED: METHADONE HCL 5 MG TABLET (FOR DETOX USE ONLY) PO ONE (10:00)
[2018-01-12] MEDS: COBICISTAT PO SCH (10:15)
[2018-01-12] MEDS: ELVITEGRAVIR PO SCH (10:15)
[2018-01-12] MEDS: SULFAMETHOXAZOLE/TRIMETHOPRIM 800MG/160MG D.S. TABLET PO SCH (10:15)
[2018-01-12] MEDS: EMTRICITABINE PO SCH (10:15)
[2018-01-12] MEDS: PRENATAL VITAMINS W/ FOLIC ACID TABLET (FP) PO SCH (10:15)
[2018-01-12] MEDS: TENOFOVIR ALAFENAMIDE PO SCH (10:15)
[2018-01-12] MEDS: levETIRAcetam 500 MG TABLET (FP) PO SCH ×2 (10:15→22:21)
--- NOTE | 2018-01-12 13:24 | PN ---
BHS COWS - Scale Resting Pulse: 0= OR 80 or Below Sweatin= Chills/Flushing Restless Observation: 3= Extraneous Movement Pupil Size: 1= Pupils >than Normal Bone or Joint Aches: 2= Severe Diffuse Aches Runny Nose/ Eye Tearin= Runny Nose/Eyes GI Upset > 30mins: 2= Nausea/Diarrhea Tremor Observation of Outstretched Hands: 2= Slight Tremor Visible Yawning Observation: 1= 1-2x During Session Anxiety or Irritability: 2=Irritable/Anxious Goose Flesh Skin: 0=Smooth Skin COWS Score: 16 BHS Progress Note (SOAP) Subjective: alert,irritable,anxious,interrupted sleep,tremor,pain in the body and back Objective: 01/12/18 13:23 Vital Signs Temperature 98.4 F 01/12/18 09:13 Pulse Rate 49 L 01/12/18 09:13 Respiratory Rate 20 01/12/18 09:13 Blood Pressure 105/68 01/12/18 09:13 O2 Sat by Pulse Oximetry (%) Laboratory Last Values WBC 3.6 K/mm3 (4.0-10.0) L 01/11/18 07:50 RBC 4.45 M/mm3 (4.00-5.60) 01/11/18 07:50 Hgb 12.3 GM/dL (11.7-16.9) 01/11/18 07:50 Hct 37.2 % (35.4-49) 01/11/18 07:50 MCV 83.6 fl (80-96) 01/11/18 07:50 MCH 27.8 pg (25.7-33.7) 01/11/18 07:50 MCHC 33.2 g/dl (32.0-35.9) 01/11/18 07:50 RDW 14.4 % (11.9-15.9) 01/11/18 07:50 Plt Count 203 K/MM3 (134-434) 01/11/18 07:50 MPV 7.8 fl (7.5-11.1) 01/11/18 07:50 Sodium 139 mmol/L (136-145) 01/11/18 07:50 Potassium 4.1 mmol/L (3.5-5.1) 01/11/18 07:50 Chloride 104 mmol/L (98-107) 01/11/18 07:50 Carbon Dioxide 29 mmol/L (21-32) 01/11/18 07:50 Anion Gap 6 (8-16) L 01/11/18 07:50 BUN 11 mg/dL (7-18) D 01/11/18 07:50 Creatinine 0.7 mg/dL (0.7-1.3) 01/11/18 07:50 Creat Clearance w eGFR > 60 (>60) 01/11/18 07:50 Random Glucose 69 mg/dL (74-106) L 01/11/18 07:50 Calcium 8.4 mg/dL (8.5-10.1) L 01/11/18 07:50 Total Bilirubin 0.5 mg/dL (0.2-1.0) D 01/11/18 07:50 AST 15 U/L (15-37) 01/11/18 07:50 ALT 19 U/L (12-78) 01/11/18 07:50 Alkaline Phosphatase 65 U/L (45-117) 01/11/18 07:50 Total Protein 6.9 g/dl (6.4-8.2) 01/11/18 07:50 Albumin 3.6 g/dl (3.4-5.0) 01/11/18 07:50 Urine Color Yellow 01/10/18 23:49 Urine Appearance Clear 01/10/18 23:49 Urine pH 6.0 (5.0-8.0) 01/10/18 23:49 Ur Specific [place] 1.023 (1.001-1.035) 01/10/18 23:49 Urine Protein Negative (NEGATIVE) 01/10/18 23:49 Urine Glucose (UA) Negative (NEGATIVE) 01/10/18 23:49 Urine Ketones Negative (NEGATIVE) 01/10/18 23:49 Urine Blood Negative (NEGATIVE) 01/10/18 23:49 Urine Nitrite Negative (NEGATIVE) 01/10/18 23:49 Urine Bilirubin Negative (<2.0 mg/dL) 01/10/18 23:49 Urine Urobilinogen 2.0 mg/dL (0.2-1.0) 01/10/18 23:49 Ur Leukocyte Esterase Negative (NEGATIVE) 01/10/18 23:49 RPR Titer Nonreactive (NONREACTIVE) 01/11/18 07:50 Assessment: 01/12/18 13:24 withdrawal symptom Plan: continue detox
[2018-01-12] MEDS: MELATONIN 5 MG TABLETS PO PRN (22:21)
[2018-01-12] MEDS: THIAMINE HCL 100 MG TABLET (FP) PO SCH (22:21)
[2018-01-13] MEDS ORDERED: AZITHROMYCIN 250 MG TABLET PO SCH (08:00)
[2018-01-13] MEDS ORDERED: METHADONE HCL 5 MG TABLET (FOR DETOX USE ONLY) PO ONE (10:00)
[2018-01-13] MEDS: TENOFOVIR ALAFENAMIDE PO SCH (10:37)
[2018-01-13] MEDS: levETIRAcetam 500 MG TABLET (FP) PO SCH ×2 (10:37→22:36)
[2018-01-13] MEDS: SULFAMETHOXAZOLE/TRIMETHOPRIM 800MG/160MG D.S. TABLET PO SCH (10:37)
[2018-01-13] MEDS: EMTRICITABINE PO SCH (10:37)
[2018-01-13] MEDS: COBICISTAT PO SCH (10:37)
[2018-01-13] MEDS: ELVITEGRAVIR PO SCH (10:37)
[2018-01-13] MEDS: PRENATAL VITAMINS W/ FOLIC ACID TABLET (FP) PO SCH (10:37)
--- NOTE | 2018-01-13 12:56 | PN ---
S Progress Note (SOAP) Subjective: ALERT,IRRITABLE,ANXIOUS,INTERRUPTED SLEEP Objective: 01/13/18 12:55 Vital Signs Temperature 97.9 F 01/13/18 09:26 Pulse Rate 56 L 01/13/18 09:26 Respiratory Rate 16 01/13/18 09:26 Blood Pressure 100/56 01/13/18 09:26 O2 Sat by Pulse Oximetry (%) Assessment: 01/13/18 12:55 WITHDRAWAL SYMPTOM Plan: CONTINUE DETOX
[2018-01-13] MEDS: THIAMINE HCL 100 MG TABLET (FP) PO SCH (22:36)
[2018-01-13] MEDS: MELATONIN 5 MG TABLETS PO PRN (22:36)
[2018-01-14] MEDS ORDERED: METHADONE HCL 10 MG TABLET (FOR DETOX USE ONLY) PO ONE (10:00)
[2018-01-14] MEDS: PRENATAL VITAMINS W/ FOLIC ACID TABLET (FP) PO SCH (10:26)
[2018-01-14] MEDS: TENOFOVIR ALAFENAMIDE PO SCH (10:27)
[2018-01-14] MEDS: ELVITEGRAVIR PO SCH (10:27)
[2018-01-14] MEDS: SULFAMETHOXAZOLE/TRIMETHOPRIM 800MG/160MG D.S. TABLET PO SCH (10:27)
[2018-01-14] MEDS: EMTRICITABINE PO SCH (10:27)
[2018-01-14] MEDS: levETIRAcetam 500 MG TABLET (FP) PO SCH ×2 (10:27→22:19)
[2018-01-14] MEDS: COBICISTAT PO SCH (10:27)
--- NOTE | 2018-01-14 12:13 | PN ---
BHS Progress Note (SOAP) Subjective: ALERT,IRRITABLE,INTERRUPTED SLEEP Objective: 01/14/18 12:11 Vital Signs Temperature 97.7 F 01/14/18 10:36 Pulse Rate 58 L 01/14/18 10:36 Respiratory Rate 18 01/14/18 10:36 Blood Pressure 115/57 01/14/18 10:36 O2 Sat by Pulse Oximetry (%) Assessment: 01/14/18 12:12 WITHDRAWAL SYMPTOM Plan: CONTINUE DETOX,DISCHARGE IN AM
[2018-01-14] MEDS: THIAMINE HCL 100 MG TABLET (FP) PO SCH (22:19)
[2018-01-14] MEDS: MELATONIN 5 MG TABLETS PO PRN (22:19)
[2018-01-15] MEDS ORDERED: METHADONE HCL 5 MG TABLET (FOR DETOX USE ONLY) PO ONE (06:00)
--- NOTE | 2018-01-15 08:43 | PN ---
S Progress Note (SOAP) Subjective: ALERT,NO COMPLAINT Objective: 01/15/18 08:41 Vital Signs Temperature 97.9 F 01/15/18 07:40 Pulse Rate 51 L 01/15/18 07:40 Respiratory Rate 16 01/15/18 07:40 Blood Pressure 111/70 01/15/18 07:40 O2 Sat by Pulse Oximetry (%) Assessment: 01/15/18 08:41 DETOX COMPLETED,NO WITHDRAWAL SYMPTOM Plan: DISCHARGE TODAY,FOLLOW UP WITH AFTER CARE PROGRAM ARRANGEMENT
--- NOTE | 2018-01-15 08:49 | DS ---
[facility] Detox Discharge Summary Admission Date: 01/10/18 Discharge Date: 01/15/18 - History Present History: Opioid Dependence Additional Comments: FOLLOW UP WITH AFTER CARE PROGRAM ARRANGEMENT Pertinent Past History: HIV LEFT HEMIPARESIS POLIOMYELITIS HISTORY NICOTINE DEPENDENCE DEHYDRATION WEIGHT LOSS - Physical Exam Results Vital Signs: Vital Signs Temperature 97.9 F 01/15/18 07:40 Pulse Rate 51 L 01/15/18 07:40 Respiratory Rate 16 01/15/18 07:40 Blood Pressure 111/70 01/15/18 07:40 O2 Sat by Pulse Oximetry (%) Pertinent Admission Physical Exam Findings: WITHDRAWAL SIGNS AND SYMPTOM Laboratory Last Values WBC 3.6 K/mm3 (4.0-10.0) L 01/11/18 07:50 RBC 4.45 M/mm3 (4.00-5.60) 01/11/18 07:50 Hgb 12.3 GM/dL (11.7-16.9) 01/11/18 07:50 Hct 37.2 % (35.4-49) 01/11/18 07:50 MCV 83.6 fl (80-96) 01/11/18 07:50 MCH 27.8 pg (25.7-33.7) 01/11/18 07:50 MCHC 33.2 g/dl (32.0-35.9) 01/11/18 07:50 RDW 14.4 % (11.9-15.9) 01/11/18 07:50 Plt Count 203 K/MM3 (134-434) 01/11/18 07:50 MPV 7.8 fl (7.5-11.1) 01/11/18 07:50 Sodium 139 mmol/L (136-145) 01/11/18 07:50 Potassium 4.1 mmol/L (3.5-5.1) 01/11/18 07:50 Chloride 104 mmol/L (98-107) 01/11/18 07:50 Carbon Dioxide 29 mmol/L (21-32) 01/11/18 07:50 Anion Gap 6 (8-16) L 01/11/18 07:50 BUN 11 mg/dL (7-18) D 01/11/18 07:50 Creatinine 0.7 mg/dL (0.7-1.3) 01/11/18 07:50 Creat Clearance w eGFR > 60 (>60) 01/11/18 07:50 Random Glucose 69 mg/dL (74-106) L 01/11/18 07:50 Calcium 8.4 mg/dL (8.5-10.1) L 01/11/18 07:50 Total Bilirubin 0.5 mg/dL (0.2-1.0) D 01/11/18 07:50 AST 15 U/L (15-37) 01/11/18 07:50 ALT 19 U/L (12-78) 01/11/18 07:50 Alkaline Phosphatase 65 U/L (45-117) 01/11/18 07:50 Total Protein 6.9 g/dl (6.4-8.2) 01/11/18 07:50 Albumin 3.6 g/dl (3.4-5.0) 01/11/18 07:50 Urine Color Yellow 01/10/18 23:49 Urine Appearance Clear 01/10/18 23:49 Urine pH 6.0 (5.0-8.0) 01/10/18 23:49 Ur Specific [place] 1.023 (1.001-1.035) 01/10/18 23:49 Urine Protein Negative (NEGATIVE) 01/10/18 23:49 Urine Glucose (UA) Negative (NEGATIVE) 01/10/18 23:49 Urine Ketones Negative (NEGATIVE) 01/10/18 23:49 Urine Blood Negative (NEGATIVE) 01/10/18 23:49 Urine Nitrite Negative (NEGATIVE) 01/10/18 23:49 Urine Bilirubin Negative (<2.0 mg/dL) 01/10/18 23:49 Urine Urobilinogen 2.0 mg/dL (0.2-1.0) 01/10/18 23:49 Ur Leukocyte Esterase Negative (NEGATIVE) 01/10/18 23:49 RPR Titer Nonreactive (NONREACTIVE) 01/11/18 07:50 Vital Signs Temperature 97.9 F 01/15/18 07:40 Pulse Rate 51 L 01/15/18 07:40 Respiratory Rate 16 01/15/18 07:40 Blood Pressure 111/70 01/15/18 07:40 O2 Sat by Pulse Oximetry (%) - Treatment Hospital Course: Detox Protocol Followed, Detoxed Safely, Responded well, Discharged Condition Good - Medication Discharge Medications: Ambulatory Orders Azithromycin 500 mg PO WEEKLY 01/10/18 Elviteg/Cob/Emtri/Tenof Alafen [Genvoya (Non-Formulary)] 150 mg PO DAILY Sulfamethoxazole/Trimethoprim [Bactrim DS -] 1 tab PO DAILY 01/10/18 levETIRAcetam [Keppra -] 1 tab PO BID 01/10/18 - Diagnosis (1) Opioid dependence with withdrawal Current Visit: Yes Status: Acute (2) Dehydration Current Visit: Yes Status: Acute (3) Nicotine dependence Current Visit: Yes Status: Acute Qualifiers: Nicotine product type: cigarettes Substance use status: uncomplicated Qualified Code(s): F17.210 - Nicotine dependence, cigarettes, uncomplicated (4) HIV (human immunodeficiency virus infection) Current Visit: Yes Status: Chronic (5) Hemiparesis of left nondominant side Current Visit: Yes Status: Chronic Qualifiers: Hemiparesis etiology: non-cerebrovascular etiology Qualified Code(s): G81.94 - Hemiplegia, unspecified affecting left nondominant side (6) Poliomyelitis Current Visit: Yes Status: Chronic (7) Underweight Current Visit: Yes Status: Chronic - AMA Did Patient Leave Against Medical Advice: No
[2018-01-15] MEDS: levETIRAcetam 500 MG TABLET (FP) PO SCH (10:52)
[2018-01-15] MEDS: TENOFOVIR ALAFENAMIDE PO SCH (10:52)
[2018-01-15] MEDS: ELVITEGRAVIR PO SCH (10:52)
[2018-01-15] MEDS: EMTRICITABINE PO SCH (10:52)
[2018-01-15] MEDS: SULFAMETHOXAZOLE/TRIMETHOPRIM 800MG/160MG D.S. TABLET PO SCH (10:52)
[2018-01-15] MEDS: COBICISTAT PO SCH (10:52)
[2018-01-15] MEDS: PRENATAL VITAMINS W/ FOLIC ACID TABLET (FP) PO SCH (10:52)
[2018-01-15 13:27] VITALS: BP 123/56; PULSE 73; TEMP 97.8
== END 2018-01-15 15:15 | disposition home or self-care (01) | DRG 773 ==
LOC: YASAS 13:17 → Y6N 21:46
PROVIDERS: ADMIT Surgery; ATTEND Surgery
PROC: HZ2ZZZZ Detoxification Services for Substance Abuse Treatment (ICD-10-PCS; principal; 2018-01-10)
DX: F11.23 Opioid dependence with withdrawal (principal); F17.213 Nicotine dependence, cigarettes, with withdrawal; Z21 Asymptomatic human immunodeficiency virus [HIV] infection status; E86.0 Dehydration; G40.909 Epilepsy, unspecified, not intractable, without status epilepticus; G81.94 Hemiplegia, unspecified affecting left nondominant side; A80.9 Acute poliomyelitis, unspecified; R26.81 Unsteadiness on feet; R63.6 Underweight; Z68.20 Body mass index [BMI] 20.0-20.9, adult; Z88.8 Allergy status to other drugs, medicaments and biological substances
CPT/HCPCS: 36415; 80053; 81003; 85027; 86593; 93005; 93010

== ENCOUNTER 2018-01-15 15:20 | Inpatient (IN) | payer OTHER ==
[2018-01-15] MEDS ORDERED: MAGNESIUM HYDROX 2400MG/30ML ORAL SUSPENSION 30 ML CUP PO PRN (18:05)
[2018-01-15] MEDS ORDERED: P-EPHED 60MG/TRIPROLIDI 2.5MG TABLET PO PRN (18:05)
[2018-01-15] MEDS ORDERED: NICOTINE POLACRILEX 2 MG GUM BUC PRN (18:05)
[2018-01-15] MEDS ORDERED: MAG HYDROX/AL HYDROX/SIMETH 30 ML UNIT-DOSE CUP PO PRN (18:05)
[2018-01-15] MEDS ORDERED: hydrOXYzine PAMOATE 50 MG CAPSULE (FP) PO PRN (18:05)
[2018-01-15] MEDS ORDERED: LOPERAMIDE HCL 2 MG CAPSULE PO PRN (18:05)
[2018-01-15] MEDS ORDERED: MENTHOL/PHENOL 1 EACH UD MM PRN (18:05)
[2018-01-15] MEDS ORDERED: guaiFENesin/D-METHORPHAN HB 10 ML UNIT-DOSE CUPS PO PRN (18:05)
[2018-01-15] MEDS ORDERED: ACETAMINOPHEN 325 MG TABLET (FP) PO PRN (18:05)
[2018-01-15] MEDS ORDERED: IBUPROFEN 400 MG TABLET (FP) PO PRN (18:05)
[2018-01-15] MEDS ORDERED: MAGNESIUM CITRATE 300 ML BOTTLE PO PRN (18:05)
[2018-01-15 18:16] VITALS: BMI 20.5
[2018-01-15] MEDS: levETIRAcetam 500 MG TABLET (FP) PO SCH (21:28)
[2018-01-15] MEDS ORDERED: THIAMINE HCL 100 MG TABLET (FP) PO SCH (22:00)
[2018-01-15] MEDS ORDERED: MELATONIN 5 MG TABLETS PO PRN (22:00)
[2018-01-16 06:50] VITALS: BP 117/83; PULSE 57; TEMP 97.9
[2018-01-16] MEDS: levETIRAcetam 500 MG TABLET (FP) PO SCH (09:58)
[2018-01-16] MEDS ORDERED: NICOTINE 14 MG/24 HOURS TOPICAL PATCH TD SCH (10:00)
[2018-01-16] MEDS ORDERED: SULFAMETHOXAZOLE/TRIMETHOPRIM 800MG/160MG D.S. TABLET PO SCH (10:00)
[2018-01-16] MEDS ORDERED: PRENATAL VITAMINS W/ FOLIC ACID TABLET (FP) PO SCH (10:00)
[2018-01-16] MEDS ORDERED: ELVITEG/COB/EMTRI/TENOF (GENVOYA) TABLET (NF) PO SCH (10:00)
--- NOTE | 2018-01-16 10:00 | PN ---
[facility] Progress Note Note: Patient decided to sign out today AMA despite our strong recommendations to continue his treatment on inpatient basis. He declined to be interviewed for admission. Stable for AMA.
== END 2018-01-16 10:50 | disposition left against medical advice (07) | DRG 770 ==
LOC: YASAS 15:20 → Y3W 15:21
PROVIDERS: ADMIT Psychiatry & Neurology Psychiatry; ATTEND Psychiatry & Neurology Psychiatry
PROC: HZ42ZZZ Group Counseling for Substance Abuse Treatment, Cognitive-Behavioral (ICD-10-PCS; principal; 2018-01-15)
DX: F11.20 Opioid dependence, uncomplicated (principal); F17.200 Nicotine dependence, unspecified, uncomplicated; A80.9 Acute poliomyelitis, unspecified; E86.0 Dehydration; Z21 Asymptomatic human immunodeficiency virus [HIV] infection status; R26.81 Unsteadiness on feet; G81.94 Hemiplegia, unspecified affecting left nondominant side; L98.8 Other specified disorders of the skin and subcutaneous tissue